=== PATIENT | male | born 1965 | race Caucasian/White ===

== ENCOUNTER 2022-06-12 16:49 | Emergency (ER) | payer OTHER ==
[~2022-06-12] VITALS: Ht 177.8 cm; Wt 113.4 kg
[2022-06-12] MEDS ORDERED: TETANUS-DIPTH-ACEL PERTUSSIS 0.5ML SYR Tdap IM ONE (18:00)
[2022-06-12] MEDS ORDERED: DOXYCYCLINE 100 MG TAB/CAP PO ONE (18:00)
[2022-06-12] MEDS ORDERED: IBUP800T27 PO (18:34)
[2022-06-12] MEDS ORDERED: DOXY-340 PO (18:34)
[2022-06-12 19:04] VITALS: BP 125/80
== END 2022-06-12 19:07 | disposition home or self-care (01) ==
LOC: ER 16:49
DX: S61.432A Puncture wound without foreign body of left hand, initial encounter (principal); X58.XXXA Exposure to other specified factors, initial encounter; Y93.89 Activity, other specified; Y92.89 Other specified places as the place of occurrence of the external cause; Y99.8 Other external cause status
CPT/HCPCS: 73130; 90471; 90715

== ENCOUNTER 2023-06-30 04:12 | Emergency (ER) | payer OTHER ==
[~2023-06-30] VITALS: Ht 177.8 cm; Wt 117.3 kg
[~2023-06-30 04:12] MED LIST: DOXY1CAP57 PO; IBUP-1456 PO
[2023-06-30] MEDS: diphenhdrAMINE HCL 50 MG/1 ML VL IM ONE (04:51)
[2023-06-30] MEDS: methylPREDNISolone SOD SUCC 125 MG/2 ML VL IM ONE (06:54)
[2023-06-30] MEDS: EPINEPHrine HCL 1 MG/1 ML AMP SC ONE (06:55)
[2023-06-30 07:21] VITALS: BP 163/89; PULSE 91; RESP 18; TEMP 97.8; O2SAT 96
[2023-06-30 07:57] LABS: Basophils # (auto) 0 10 ^3/uL (0-0.2); Eosinophils # (auto) 0 10 ^3/uL (0-0.8); Mean Corpuscular Hgb Conc. 33.4 g/dL (32.0-36.0); Mean Corpuscular Volume 84.2 fL (80.0-100.0); Neutrophils % (auto) 85.9 % (37.0-80.0)
[2023-06-30 08:07] LABS: Basophils % (auto) 0.1 % (0.0-2.0); Eosinophils % (auto) 0.1 % (0.0-7.0); Hematocrit 49.6 % (41.0-53.0); Hemoglobin 16.6 g/dL (13.5-17.5); Lymphocytes % (auto) 8.6 % (10.0-50.0); Mean Corpuscular Hemoglobin 28.2 pg (28.0-32.0); Monocytes # (auto) 0.6 10 ^3/uL (0-1.3); Monocytes % (auto) 5.3 % (0.0-12.0); Neutrophils # (auto) 9.9 10 ^3/uL (1.6-8.6); Nucleated Red Blood Cells % 0.3 %; Red Blood Cells 5.89 10^6/uL (4.5-5.90); Red Cell Distribution Width 14.4 % (11.8-14.3); White Blood Cell 11.5 10^3/uL (4.4-10.8)
[2023-06-30 08:13] LABS: Chloride 104 mmol/L (98-107); Potassium 3.5 mmol/L (3.5-5.1); Sodium 136 mmol/L (136-145)
[2023-06-30 08:14] LABS: Anion Gap 7 (5-15); Carbon Dioxide 25 mmol/L (20-30)
[2023-06-30 08:15] LABS: Calcium 9.5 mg/dL (8.5-10.1)
[2023-06-30 08:20] LABS: BUN/Creatinine Ratio 12.9 (10.0-20.0); Blood Urea Nitrogen 15 mg/dL (9-23); Glucose 130 mg/dL (74-106)
[2023-06-30] MEDS: cefTRIAXone SOD 1,000 MG VL IM ONE ×2 (08:34)
[2023-06-30] MEDS ORDERED: PRED20TA2 PO (08:42)
[2023-06-30] MEDS ORDERED: CEPH500C PO (08:42)
[2023-06-30] MEDS ORDERED: HYDR50TA69 PO (08:42)
== END 2023-06-30 08:47 | disposition home or self-care (01) ==
LOC: ER 04:12
DX: T78.49XA Other allergy, initial encounter (principal); L08.89 Other specified local infections of the skin and subcutaneous tissue; I10 Essential (primary) hypertension; Z79.899 Other long term (current) drug therapy; X58.XXXA Exposure to other specified factors, initial encounter
CPT/HCPCS: 36415; 80048; 83605; 85025; 87040; 96372; 99284; J0171; J0696; J1200; J2930

== ENCOUNTER 2023-07-02 05:00 | Emergency (ER) | payer OTHER ==
[~2023-07-02] VITALS: Ht 177.8 cm; Wt 116.3 kg
[~2023-07-02 05:00] MED LIST changes: +CEPH500C PO; +HYDR50TA69 PO; +PRED20TA2 PO
[2023-07-02] MEDS: EPINEPHrine HCL 1 MG/1 ML AMP IM ONE (05:33)
[2023-07-02] MEDS: DexAMETHasone SOD PHOS 10MG/1ML VIAL INJ IV ONE (05:33)
[2023-07-02] MEDS: diphenhdrAMINE HCL 50 MG/1 ML VL IV ONE (05:33)
[2023-07-02] MEDS: FAMOTIDINE (10MG/ML) 2ML VL IV ONE (05:34)
[2023-07-02 06:55] VITALS: BP 152/95; PULSE 107; RESP 18; TEMP 98.9; O2SAT 100
== END 2023-07-02 07:01 | disposition home or self-care (01) ==
LOC: ER 05:00
DX: T78.49XA Other allergy, initial encounter (principal); L51.9 Erythema multiforme, unspecified; E78.5 Hyperlipidemia, unspecified; Z79.899 Other long term (current) drug therapy; X58.XXXA Exposure to other specified factors, initial encounter
CPT/HCPCS: 96372; 96374; 96375; 99284; J0171; J1100; J1200; J3490

== ENCOUNTER 2024-11-06 06:59 | Emergency (ER) | payer OTHER ==
[~2024-11-06] VITALS: Ht 177.8 cm; Wt 109.1 kg
--- NOTE | 2024-11-06 07:53 | ED.PDOC ---
HPI Comments A 59 YEAR OLD MALE PRESENTS TO THE ED WITH COMPLAINT OF LEFT 4TH FINGER LACERATION. PATIENT STATES A DOOR ACCIDENTALLY CLOSED ON HIS LEFT 4TH FINGER CAUSING HIM TO SUSTAIN A LACERATION TO HIS LEFT 4TH FINGER. PATIENT REPORTS HE IS CURRENTLY EXPERIENCING PAIN TO HIS LEFT 4TH FINGER. BLEEDING IS CONTROLLED AT THIS TIME. PATIENT DENIES FEVER, CHILLS, SHORTNESS OF BREATH, CHEST PAIN, ABDOMINAL PAIN, NAUSEA, VOMITING, HEADACHE, OR OTHER COMPLAINTS. NO OTHER SYMPTOMS OR MODIFYING FACTORS AT THIS TIME. PATIENT IS ALERT, ORIENTED X 4, AND HAS STEADY GAIT. Chief Complaint: Upper Extremity Time Seen by MD: 07:19 Primary Care Provider: UNKNOWN Reviewed Notes: Nurses Notes, Medications, Allergies Allergies: Coded Allergies: NO KNOWN ALLERGIES (Unverified , 06/12/22) Home Meds Active Scripts Cephalexin Monohydrate (Cephalexin) 500 Mg Cap, 1 CAP PO QID, #28 CAP Prov:LYN SR 11/06/24 Hydroxyzine Hcl (Hydroxyzine Hcl) 50 Mg Tab, 1 TAB PO BID, #30 TAB Prov:LYN SR 06/30/23 Prednisone (Prednisone) 20 Mg Tab, 60 MG PO DAILY, #24 TAB Prov:LYN SR 06/30/23 Cephalexin Monohydrate (Cephalexin) 500 Mg Cap, 1 CAP PO QID, #40 CAP Prov:LYN SR 06/30/23 Ibuprofen (Ibuprofen) 800 Mg Tab, 800 MG PO Q8HP PRN for 10 Days, #30 TAB Prov:RAYSHAWN DURÁN DO 06/12/22 Doxycycline Monohydrate (Doxycycline Monohydrate) 100 Mg Cap, 1 CAP PO BID for 14 Days, #28 CAP Prov:RAYSHAWN DURÁN DO 06/12/22 Information Source: Patient Mode of Arrival: Ambulatory Severity: Moderate Severity of Laceration: Controlled Bleeding Complexity: Simple Timing: Hours Prehospital treatment: None Laceration Location: Digit #4 (LEFT 4TH FINGER) Mechanism: Metal, Blunt Trauma Last Tetanus: UTD, Unknown Laceration Length (cm): 3 Skin Type: Irregular Depth of Injury: SQ Tendon Injury: 0% Distal Function Deficits: Motor Tender: Moderate Discharge: None Erythema: None Associated Signs and Symptoms: None Past Medical History PAST MEDICAL HISTORY: High Lipids Surgical History: Denies all surgeries Family History Family History: Reviewed,noncontributory to illness Social History Smoker: Non-Smoker Alcohol: Denies ETOH Use Drugs: Denies Drug Use Lives In: Home Constitutional: denies: chills, diaphoresis, fatigue, fever, malaise, sweats, weakness, others EENTM: denies: blurred vision, double vision, ear bleeding, ear discharge, ear drainage, ear pain, ear ringing, eye pain, eye redness, hearing loss, mouth pain, mouth swelling, nasal discharge, nose bleeding, nose congestion, nose pain, photophobia, tearing, throat pain, throat swelling, voice changes, others Respiratory: denies: cough, hemoptysis, orthopnea, SOB at rest, shortness of breath, SOB with excertion, stridor, wheezing, others Cardiovascular: denies: chest pain, dizzy spells, diaphoresis, Dyspnea on exertion, edema, irregular heart beat, left arm pain, lightheadedness, palpitations, PND, syncope, others Gastrointestinal: denies: abdomen distended, abdominal pain, blood streaked bowels, constipated, diarrhea, dysphagia, difficulty swallowing, hematemesis, melena, nausea, poor appetite, poor fluid intake, rectal bleeding, rectal pain, vomiting, others Genitourinary: denies: burning, dysuria, flank pain, frequency, hematuria, incontinence, penile discharge, penile sore, pain, testicle pain, testicle swelling, urgency, others Neurological: denies: dizziness, fainting, headache, left sided numbness, left sided weakness, numbness, paresthesia, pre-existing deficit, right sided numbness, right sided weakness, seizure, speech problems, tingling, tremors, weakness, others Musculoskeletal: reports: others (LEFT 4TH FINGER PAIN); denies: back pain, gout, joint pain, joint swelling, muscle pain, muscle stiffness, neck pain Integumetry: reports: bruises, laceration (LACERATION OF LEFT 4TH FINGER); denies: change in color, change in hair/nails, dryness, lesions, lumps, rash, wounds, others Hematologic/Lymphatic: denies: anemia, blood clots, easy bleeding, easy bruising, swollen glands, others Endocrine: denies: excessive hunger, excessive sweating, excessive thirst, excessive urination, flushing, intolerance to cold, intolerance to heat, unexplained weight gain, unexplained weight loss, others Psychiatric: denies: anxiety, bipolar disorder, depression, hopeless, panic disorder, schizophrenia, sleepless, suicidal, others All Other Systems: Reviewed and Negative Physical Exam General Appearance: No Apparent Distress, Obese HEENT: Normal ENT Inspection, PERRL/EOMI, Pharynx Normal, TMs Normal Neck: Full Range of Motion, Non-Tender, Normal, Normal Inspection Respiratory: Chest Non-Tender, Lungs Clear, No Accessory Muscle Use, No Respiratory Distress, Normal Breath Sounds Cardiovascular: No Edema, No JVD, No Murmur, No Gallop, Normal Peripheral Pulses, Regular Rate/Rhythm Breast Exam: Deferred Gastrointestinal: No Organomegaly, Non Tender, No Pulsatile Mass, Normal Bowel Sounds, Soft Genitalia: Deferred Pelvic: Deferred Rectal: Deferred Extremities: No calf tenderness, Normal capillary refill, Normal range of motion, No pedal edema, Tender (AND LACERATION ON LEFT 4TH FINGER, NO BONY TENDERNESS AND DEFORMITY, +SUBUNGUAL HEMATOMA OF LEFT 4TH FINGER. ) Musculoskeletal : Apperance: Normal Neurologic: Alert, veterinary hospital attendant II-XII nml as Tested, No Motor Deficits, Normal Affect, Normal Mood, No Sensory Deficits Cerebellar Function: Normal Reflexes: Normal Skin: Dry, Lacerations (3CM IRREGULAR LACERATION WITH SUBUNGUAL HEMATOMA ON LEFT 4TH FINGER, NO BLEEDING, NEUROVASCULAR INTACT, NORMAL ROM. ), Normal Color, Warm Peripheral Pulses: 2+ carotid (R), 2+ carotid (L), 2+ Radial (R), 2+ Radial (L) Lymphatic: No Adenopathy Was a procedure done? Was a procedure done?: Yes Sedation Sedation?: No Laceration Repair : Location LEFT 4TH FINGER Length 3CM Anesthetic: Lidocaine, Without epi Laceration Repair Prep: Saline, by Irrigation Laceration Repair Wound Comple: epidermis/dermis repair Laceration Repair: Number of sutures (6), SQ, Size (4-0 ETHILON), Nylon, Simple, Gauze Informed consent obtained: No Risks, benefits, and alternati: Yes Notes AN 18 GAUGE NEEDLE WAS USED TO POKE A HOLE INTO THE PATIENT'S SUBUNGUAL HEMATOMA HIS LEFT 4TH FINGER NOW. BLOOD WAS RELEASED AND PAIN AND SWELLING WAS NOTED TO HAVE DECREASED. PATIENT'S WOUND WAS THEN CLEANED WITH NORMAL SALINE AND WRAPPED WITH STERILE GAUZE. PATIENT TOLERATED WELL. Differential diagnosis Generic Laceration: Fracture, Abrasion/Contusion, Laceration, Avulsion Differential Diagnosis: N/A X-Ray, Labs, Meds, VS Vital Signs Date Time Temp Pulse Resp B/P (MAP) Pulse Ox O2 Delivery O2 Flow Rate FiO2 11/06/24 08:11 98.2 81 18 117/78 (91) 96 98.2 11/06/24 08:11 81 18 96 Room Air 11/06/24 07:00 98.2 81 18 117/78 96 98.2 PATIENT: TONA PRIEST LACCT: [id number]: [id number] : 1965 LOC: ER ROOM / BED: / AGE / SEX: 59 / M ADM STATUS: [facility] ER SERVICE 7 ORDERING PHYSICIAN: LYN SR PROCEDURE(s): LFIN4 - L 4TH FINGER XRAY REASON: INJURY ORDER NUMBER(s): [id number], ACCESSION NUMBER(s): [id number] XY L 4TH FINGER XRAY, INDICATION: INJURY TECHNICAL DATA: Frontal view of the left hand and lateral and oblique views of the left 4th finger were obtained. COMPARISON: XY L HAND 3V XRAY on DOS: 06/12/22 FINDINGS: Possible nondisplaced fracture at the tuft of the 4th distal phalanx. Joint spaces are maintained. Alignment is anatomic. Soft tissues are within normal limits. IMPRESSION: Possible nondisplaced fracture at the tuft of the 4th distal phalanx. ATED BY: JORGE OHARA MD DICTATED DATE/TIME: 11/06/24810 SIGNED BY: JORGE OHARA MD SIGNED DATE/TIME: 11/06/24810 CC: X-Ray, Labs, Meds, VS Comment EXTERNAL MEDICAL RECORDS REVIEWED: [NONE] INDEPENDENT HISTORIANS: [NONE] SOCIAL DETERMINANTS OF HEALTH: [NONE] LABS ORDERED: NONE REVIEWED AND INTERPRETED RESULTS: NONE IMAGING ORDERED: NO FX AND DISLOCATION. XR HAND LT TREATMENTS ORDERED: LACERATION REPAIR, SEE PROCEDURE SECTION. PROCEDURES PERFORMED: LACERATION REPAIR, SEE PROCEDURE SECTION. CRITICAL CARE TIME: NONE I HAVE DISCUSSED THE PATIENT WITH THE ATTENDING PHYSICIAN DR. MODI AND HE AGREES WITH THE PATIENT'S PLAN OF CARE AND DISPOSITION. BASED ON HISTORY OF PRESENT ILLNESS, AND PHYSICAL EXAM, PATIENT WILL BE DISCHARGED HOME. DISCUSSED PLAN FOR DISCHARGE HOME WITH RX [KEFLEX]. MEDICATION WARNINGS GIVEN. SHARED DECISION MAKING: DISCUSSED WITH PATIENT THAT THEIR WORKUP WAS NORMAL. PATIENT INSTRUCTED TO FOLLOW UP WITH PRIMARY CARE PROVIDER IN 1-2 DAYS FOR RE- EVALUATION OF SYMPTOMS. PATIENT VERBALIZES UNDERSTANDING TO RETURN TO ED FOR NEW OR WORSENING SYMPTOMS OR IF FOLLOW UP WITH PCP CANNOT BE OBTAINED. PATIENT FEELS COMFORTABLE GOING HOME AT THIS TIME. ALL QUESTIONS ADDRESSED AT TIME OF DISCHARGE. Time of 1ST Reevaluation: 08:13 Reevaluation 1ST: Improved Patient Education/Counseling: Diagnosis, Treatment, Need For Follow Up Family Education/Counseling: Diagnosis, Treatment, Need For Follow Up Medical Screening: No EMC Exist At This Time Departure 1 Departure Time of Disposition: 08:20 Impression: Primary Impression: Laceration of left ring finger Qualified Codes: S61.215A - Laceration without foreign body of left ring finger without damage to nail, initial encounter Additional Impression: Subungual hematoma of left ring finger Disposition: 01 HOME / SELF CARE / HOMELESS Condition: Stable Additional Instructions: FOLLOW-UP WITH PCP IN 1 TO 2 DAYS. TAKE MEDICATIONS PRESCRIBED. RETURN TO ED FOR ANY NEW OR WORSENING SYMPTOMS. e-Prescriptions Cephalexin Monohydrate (Cephalexin) 500 Mg Cap 1 CAP PO QID, #40 CAP Prov: LYN SR 11/06/24 Discharged With: Self Critical Care Note Critical Care Time?: No Stability Stability form required: No I personally scribed for LYN SR ([email or web address]) on 11/06/24 at 07:53. Electronically submitted by Attila Carpenter ([email or web address]). I personally scribed for LYN SR ([email or web address]) on 11/06/24 at 08:09. Electronically submitted by Attila Carpenter ([email or web address]). LYN SR Nov 06, 2024 07:53
[2024-11-06 08:11] VITALS: BP 117/78; PULSE 81; RESP 18; TEMP 98.2; O2SAT 96
--- NOTE | 2024-11-06 08:14 | DVH ---
XY L 4TH FINGER XRAY, INDICATION: INJURY TECHNICAL DATA: Frontal view of the left hand and lateral and oblique views of the left 4th finger we re obtained. COMPARISON: XY L HAND 3V XRAY on DOS: 06/12/22 FINDINGS: Possible nondisplaced fracture at the tuft of the 4th distal phalanx. Joint spaces are maintained. Al ignment is anatomic. Soft tissues are within normal limits. IMPRESSION: Possible nondisplaced fracture at the tuft of the 4th distal phalanx.
== END 2024-11-06 08:12 | disposition home or self-care (01) ==
LOC: ER 06:59
DX: S61.215A Laceration without foreign body of left ring finger without damage to nail, initial encounter (principal); S60.142A Contusion of left ring finger with damage to nail, initial encounter; E78.5 Hyperlipidemia, unspecified; Z79.52 Long term (current) use of systemic steroids; Z79.899 Other long term (current) drug therapy; X58.XXXA Exposure to other specified factors, initial encounter; Y93.89 Activity, other specified; Y92.89 Other specified places as the place of occurrence of the external cause; Y99.8 Other external cause status
CPT/HCPCS: 11740; 12002; 73140